=== PATIENT | male | born 2000 | race Caucasian/White ===

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

== ENCOUNTER → 2023-01-09 | Outpatient (CLI) | payer BC | LOC: COL.RAD 01-07 10:30 | DX: S93.401A Sprain of unspecified ligament of right ankle, initial encounter (principal); X58.XXXA Exposure to other specified factors, initial encounter | CPT/HCPCS: J3301; Q9967 ==